=== PATIENT | male | born 1945 | race Caucasian/White ===

== ENCOUNTER → 2023-07-29 | Outpatient (CLI) | payer MEDICARE ==
[~2023-07-29] MED LIST: LIDOCAINE HCL 4% LTA SOL 4 ML VIAL ONE
== END | disposition home or self-care (01) ==
LOC: WHH 09:57
PROVIDERS: ATTEND Nurse Practitioner Family
DX: L97.822 Non-pressure chronic ulcer of other part of left lower leg with fat layer exposed (principal); I87.2 Venous insufficiency (chronic) (peripheral); E66.9 Obesity, unspecified; Z68.31 Body mass index [BMI] 31.0-31.9, adult; Z87.891 Personal history of nicotine dependence
CPT/HCPCS: G0463